=== PATIENT | female | born 2000 | race Caucasian/White ===

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

== ENCOUNTER → 2019-04-28 15:36 | Emergency (ER) | payer MEDICAID, SELFPAY ==
[2019-04-28 15:37] VITALS: BP 113/70; PULSE 68; RESP 16; TEMP 37; O2SAT 97; BMI 27.3
--- NOTE | 2019-04-28 16:59 | ED.RN ---
LEFT AND STATES SHE IS GOING TO GO TO URGENT CARE TO GET WORK NOTE.
== END ==
DX: R69 Illness, unspecified (principal)

== ENCOUNTER 2020-06-26 13:37 | Emergency (ER) | payer SELFPAY ==
[2019-04-28 15:37] VITALS: BMI 27.3
[2020-06-26 13:39] VITALS: BP 137/95; PULSE 136; RESP 17; TEMP 36.6; O2SAT 98; BMI 21.0
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
[2020-06-26 16:00] VITALS: RESP 19; O2SAT 98
[2020-06-26 16:33] LABS: Internal QC Validated? YES +Cl - CLEAR BKGD; Pregnancy, Urine Negative Negative
[2020-06-26 17:02] LABS: HIV - WCH Non-Reactive (Nonreactive)
[2020-06-26 17:07] VITALS: BP 132/86; PULSE 89; RESP 18; O2SAT 98
[2020-06-26 18:04] LABS: Chlamydia Trachomatis by PCR Negative (Negative); Neisserai gonorrhoeae by PCR Negative (Negative); Probe Check PASS; Sample Adequacy Control PASS; Specimen Processing Control PASS
== END 2020-06-26 17:08 | disposition home or self-care (01) ==
PROVIDERS: Emergency Provider Emergency Medicine
DX: B37.0 Candidal stomatitis (principal); F15.90 Other stimulant use, unspecified, uncomplicated; F11.90 Opioid use, unspecified, uncomplicated; F17.200 Nicotine dependence, unspecified, uncomplicated
CPT/HCPCS: 81025; 86703; 87491; 87591; 99283

== ENCOUNTER 2020-06-28 15:02 | Emergency (ER) | payer SELFPAY ==
[2020-06-28 15:04] VITALS: BP 138/93; PULSE 96; RESP 14; TEMP 36.8; O2SAT 98; BMI 23.6
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
== END 2020-06-28 16:34 | disposition home or self-care (01) ==
PROVIDERS: Emergency Provider Emergency Medicine
DX: F91.8 Other conduct disorders (principal); F17.200 Nicotine dependence, unspecified, uncomplicated
CPT/HCPCS: 99282

== ENCOUNTER 2020-08-22 14:11 | Emergency (ER) | payer SELFPAY ==
[2020-08-22] VITALS (7 sets, daily range): BP systolic 86–129; BP diastolic 54–86; PULSE 104–122; RESP 16; TEMP 36; O2SAT 96–98; BMI 22.6
--- NOTE | 2020-08-22 14:57 | EKG12_ITS ---
Test Reason : MEDICAL CLEARANCE Blood Pressure : / mmHG Vent. Rate : 097 BPM Atrial Rate : 097 BPM P-R Int : 136 ms QRS Dur : 074 ms QT Int : 396 ms P-R-T Axes : -11 068 -64 degrees QTc Int : 502 ms Normal sinus rhythm T wave abnormality, consider inferior ischemia T wave abnormality, consider anterolateral ischemia Prolonged QT Abnormal ECG Confirmed by ARELIS PIERCE, LARRY ([id number]), editor at large RUTH AYERS ([id number]) on 08/26/2020 12:41:23 PM Referred By: MAEGAN Confirmed By:LARRY INFANTE MD
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
--- NOTE | 2020-08-22 15:03 | CM.ED ---
Social Work Note: Referral Source: [facility] Referral Issue: Patient was seen by Crisis today and is coming to the ED. BALTA received phone call from Sandy in Crisis. She advised that there is a patient, Aspen Gillespie coming in by police. Sandy said that she has been working all day with the family and would like to complete the assessment. interline clerk updated. BALTA will be available for ongoing support and assistance as needed. Arti DOMINGUEZ
--- NOTE | 2020-08-22 15:23 | CM.ED ---
SOCIAL WORK Security requesting this worker speak with mother. Mother reports patient's father has been speaking with Crisis. Patient has not been [place] at this time. Spoke with Domenica with Crisis to update patient is here. Domenica to be in to assess patient. Staff updated. Kan Wilcox, TANNING SOLUTION MAKER, HADOOP ANALYST
--- NOTE | 2020-08-22 15:58 | CASEMGMT ---
Social Work Note: Referral Source: [facility] Crisis is currently meeting with patient to assess for her current level of care. Arti DOMINGUEZ
[2020-08-22] MEDS: LORazepam 1 MG Tablet 2 MG PO (16:01)
--- NOTE | 2020-08-22 16:10 | CM.ED ---
SOCIAL WORK Received call from Domenica with Crisis. Per Domenica, physician to [place] patient. Domenica reports patient requires placement and requests once medically cleared to fax chart. Staff updated and aware of plan. Kan Wilcox, CONTACT LENS BLOCKER, HAT AND CAP DRYING ROOM ATTENDANT
[2020-08-22] MEDS: Haloperidol 5 MG Tablet PO (16:15)
[2020-08-22 18:20] LABS: Absolute Lymphocyte Count 1.99 X10^3/uL (0.83-4.51); Absolute Neutrophil Count 5.5 X10^3/uL (2.0-7.7); Basophil# 0.03 X10^3/uL; Basophil% 0.4 % (0-1); Eosinophil# 0.13 X10^3/uL; Eosinophils% 1.5 % (0-5); Hematocrit 37.5 % (37-47); Hemoglobin 12.8 g/dL (12.0-15.0); Lymphocyte # 1.99 X10^3/ul (0.83-4.51); Lymphocyte % 23.5 % (19-41); Mean Corp Hgb Conc 34.1 g/dL (32-36); Mean Corpuscular Hgb 28.4 pg (27.0-32.0); Mean Corpuscular Volume 83.3 fL (81-99); Mean Platelet Vol. 10.9 fl (6.2-12.0); Monocyte# 0.84 X10^3/uL; Monocyte% 9.9 % (0-10); NRBC Flagged by Analyzer 0 % (0-5); Neutrophil # 5.47 X10^3/uL (2.7-7.7); Neutrophil % 64.5 % (47-70); Platelet Count 285 K/mm3 (150-450); RBC Distribution Width SD 38.6 fl (35.1-43.9); White Blood Count 8.5 K/mm3 (4.4-11.0)
[2020-08-22 19:13] LABS: Anion Gap 10 (5-15); BUN 19 mg/dL (7-18); BUN/Creat Ratio 31.6 RATIO (10-20); Calcium,Total 8.8 mg/dL (8.5-10.1); Chloride 104 mmol/L (98-107); EST Glomerular Filtration Rate 134 mL/min (>60); Est Glom Filt Rate - Afr Amer 162 mL/min (>60); Estimated Creatinine Clearance 112.86 ml/min; Glucose 77 mg/dL (74-106); Potassium 2.4 mmol/L (3.5-5.1); Sodium Level 140 mmol/L (136-145)
[2020-08-22 19:25] LABS: Internal QC Validated? YES +Cl - CLEAR BKGD; Pregnancy, Serum, hCG Quali. NEGATIVE Negative
--- NOTE | 2020-08-22 19:46 | CM.ED ---
SOCIAL WORK Call from Crisis, requesting Facesheet. Facesheet faxed. D. Brenden, STENOTYPE OPERATOR, LOGISTICS MANAGER
--- NOTE | 2020-08-22 19:48 | CM.ED ---
SOCIAL WORK Call from Crisis, requesting Facesheet. Facesheet faxed. D. Brenden, OUTCOMES SPECIALIST, TOY CONSULTANT
[2020-08-22] MEDS: Potassium Chloride 10mEq/100mL 10 MEQ/100 ML IV.SOLN. 100 MEQ IV BOLUS ×3 (19:49→21:49)
--- NOTE | 2020-08-22 19:59 | ED.RN ---
pt resting upon entering the room, once in room pt awakened briefly and was cooperative. restraints removed.
--- NOTE | 2020-08-22 20:39 | RAD_ITS ---
STUDY: X-RAY CHEST REASON FOR EXAM: Female, 19 years old. Sob TECHNIQUE: Single frontal view of the chest. COMPARISON: 04/19/2018. FINDINGS: Cardiac silhouette unremarkable. Pulmonary vascularity unremarkable. Aorta unremarkable. No focal airspace opacities. No pleural effusions. Calcified nodule at the left base. Upper abdomen unremarkable. Osseous structures intact. No pneumothorax. RAD/Chest 1 View (Portable) IMPRESSION: No acute cardiopulmonary process identified. Electronically Signed: Сергей Shah MD at 21:12 EDT Tel , Service support ,
[2020-08-22 22:51] LABS: AST(SGOT) 45 U/L (15-37); Alanine Aminotransfer ALT/SGPT 43 U/L (13-56); Albumin, Serum 3.9 g/dL (3.2-5.0); Alkaline Phosphatase 104 U/L (45-117); Bilirubin, Direct 0.28 mg/dL (0.00-0.30); Protein, Total 6.9 g/dL (6.4-8.2)
[2020-08-23] VITALS (8 sets, daily range): BP systolic 88–109; BP diastolic 62–71; PULSE 90–98; RESP 14–18; O2SAT 98–100
[2020-08-23] MEDS: Potassium Chloride 10mEq/100mL 10 MEQ/100 ML IV.SOLN. 100 MEQ IV BOLUS (00:08)
[2020-08-23 05:42] LABS: Amphetamine Urine VISTA POSITIVE (<1000 ng/mL); Barbiturate Urine VISTA NEGATIVE (< 200 ng/mL); Benzodiazepine Urine VISTA NEGATIVE (< 200 ng/mL); Cocaine Urine VISTA NEGATIVE (< 300 ng/mL); Ecstacy Urine VISTA POSITIVE (< 500 ng/mL); Methadone Urine VISTA NEGATIVE (< 300 ng/mL); PCP Urine VISTA NEGATIVE (< 25 ng/mL); THC Urine VISTA POSITIVE (< 50 ng/mL); Vista UDS pH Range 5
--- NOTE | 2020-08-23 06:46 | ED.RN ---
PT WOKE UP AND ASKED IF SHE COULD GO HOME D/T NOT BEING PINK SLIPPED. DR SUZI OTERO SLIPPED PT. PT UNDERSTANDS AND IS REASONABLE IN ROOM AT THIS TIME.
--- NOTE | 2020-08-23 06:50 | EKG12_ITS ---
Test Reason : REPEAT Blood Pressure : / mmHG Vent. Rate : 100 BPM Atrial Rate : 100 BPM P-R Int : 132 ms QRS Dur : 078 ms QT Int : 310 ms P-R-T Axes : 060 072 -61 degrees QTc Int : 399 ms Normal sinus rhythm Possible Left atrial enlargement Nonspecific T wave abnormality Abnormal ECG Confirmed by ARELIS PIERCE, LARRY ([id number]), school photograph editor RUTH AYERS ([id number]) on 08/26/2020 12:59:00 PM Referred By: Confirmed By:LARRY INFANTE MD
[2020-08-23 07:15] LABS: Potassium 3.2 mmol/L (3.5-5.1)
--- NOTE | 2020-08-23 09:04 | NURSING ---
FAXED EKG AND LABS TO [facility]
--- NOTE | 2020-08-23 11:49 | NURSING ---
CALLED [facility]IS[facility]. TALKED TO JING. ABOUT 1100 THE DOCTOR AT [facility] WAS LOOKING AT CHART
--- NOTE | 2020-08-23 12:20 | ED.RN ---
PT REQUESTS TO BE RE-EVALUATED TO BE ABLE TO GO HOME. TALKED TO DR. VALDEZ AND TASHA FROM SOCIAL WORK, [facility] IS TO COME IN TODAY AND REVAL PT.
--- NOTE | 2020-08-23 12:25 | CM.ED ---
SOCIAL WORK Updated by nursing, Dr. Burden requesting re-evaluation of patient. Call to Crisis, spoke with Arti. Per Arti, patient is pending today for [place]. Patient able to be re-assessed after 24 hours. Crisis reports able to re-assess this afternoon. Staff updated. Kan Wilcox, MANAGER EXPRESS, MOTEL FRONT DESK CLERK
--- NOTE | 2020-08-23 14:30 | CM.ED ---
SOCIAL WORK Spoke with Emilie from Crisis, informed patient is ready for re-assessment (has been in ER over 24 hours). Emilie reports coffee plantation worker will be in for re-assessment. Emilie states patient is currently pending at [facility] who reports no beds this weekend. Staff tonya. Kan Wilcox, SUPERVISOR CIGAR PROCESSING, CUSTOMER STRATEGY MANAGER
--- NOTE | 2020-08-23 15:29 | CM.ED ---
SOCIAL WORK Arti from Crisis here to re-assess patient. Kan Wilcox, TOBACCO EDUCATOR, CABLE STRANDER
[2020-08-23] MEDS: Potassium Chloride Oral Tablet 20 MEQ 40 MEQ PO (15:37)
--- NOTE | 2020-08-23 15:46 | ED.RN ---
[facility]ISIS IS IN ROOM RE-EVAULATING PT.
== END 2020-08-23 17:53 | disposition home or self-care (01) ==
PROVIDERS: Emergency Medicine; Emergency Provider Emergency Medicine
DX: F23 Brief psychotic disorder (principal); F15.90 Other stimulant use, unspecified, uncomplicated; F17.200 Nicotine dependence, unspecified, uncomplicated
CPT/HCPCS: 71045; 80048; 80076; 80307; 82077; 83735; 84132; 84703; 85025; 87426; 93005; 96365; 96366; 96372; 99284; J7030; A4216; J3486

== ENCOUNTER 2020-12-26 12:38 | Emergency (ER) | payer SELFPAY ==
[2020-12-26 12:38] VITALS: BP 118/88; PULSE 83; RESP 16; TEMP 36.1; O2SAT 100; BMI 26.4
--- NOTE | 2020-12-26 14:23 | ED.RN ---
MOTHER STATES PT IS BARELY BLEEDING, SHE WILL TAKE HER TO LIGHT RAIL TRAIN OPERATOR INSTEAD. INSTRUCTIONS GIVEN TO COME BACK FOR ANY INCREASE IN BLEEDING OR BECOMES SYMPTOMATIC FOR BLOOD LOSS OR PAIN.
== END 2020-12-26 15:00 | disposition left against medical advice (07) ==
LOC: ED 15:48
DX: N93.9 Abnormal uterine and vaginal bleeding, unspecified (principal)

== ENCOUNTER 2021-04-05 17:46 | Emergency (ER) | payer SELFPAY ==
[2021-04-05 17:47] VITALS: BP 135/122; PULSE 76; RESP 20; TEMP 36.1; O2SAT 98; BMI 33.5
--- NOTE | 2021-04-05 17:58 | ED.RN ---
PT. REPORTS LAST METH USE OF YESTERDAY.
--- NOTE | 2021-04-05 18:09 | EDS_ITS ---
HPI History of Present Illness Chief Complaint: Substance Abuse Detail of Chief Complaint: Illicit drug use Informant: patient, EMS and police/primer inserting machine adjuster Narrative Narrative: Patient presents to the emergency department with abnormal behavior. She was known to be walking outside and just a T-shirt so EMS was called to evaluate her. Patient was awake and alert and they were to sign off on her but then apparently she ran away from police into a field. They were going to apparently pink slip for but brought her into the ER for evaluation. Patient does have history of methamphetamine use but tells me she has new since yesterday. Patient denies any other drug use. She denies being suicidal or homicidal. [facility] Medical History Anxiety Depression Substance abuse Allergy/AdvReac Type Severity Reaction Status Date / Time bee venom protein (honey bee) Allergy Other Verified 04/05/21 17:50 Social History Smoking Status: Current every day smoker tobacco type: cigarettes ROS ROS ED Constitutional Constitutional ED: Reports systems reviewed and no addt'l complaints, except as documented; Denies body ache(s), change in weight or chills Eyes Eyes: Denies acute decrease in peripheral vision, change in vision, double vision or loss of vision ENT ENT ED: Reports none; Denies ear pain, lip swelling, loss taste/smell, neck pain, otalgia or sore throat Cardiovascular Cardiovascular: Reports none; Denies abdominal pain, chest pain with activity, leg edema, lightheadedness, palpitations, rapid heart rate or syncope Respiratory/Chest Respiratory/Chest: Reports none; Denies change in mental status, dry cough, dyspnea, hemoptysis, shortness of breath at rest or shortness of breath with exertion Gastrointestinal Gastrointestinal: Reports none; Denies abdominal pain, change in stool character, diarrhea, hematemesis, hematochezia, melena, rectal bleeding or vomiting Genitourinary Genitourinary ED: Reports none; Denies abdominal discomfort, anuria, dysuria, genital pain or polyuria Musculoskeletal Musculoskeletal: Reports none; Denies arthralgias, back pain, difficulty walking, extremity pain, muscle weakness or myalgias Integumentary Reports none; Denies abscess or rash Neurologic Neurologic: Reports none; Denies abnormal gait, confusion, focal weakness, frequent falls, headache(s), loss of vision, numbness, paresthesias, radicular pain, vertigo or weakness Psychiatric Psychiatric: Reports systems reviewed and no addt'l complaints, except as documented, none and other Details: Abnormal behavior, agitation ; Denies behavioral changes, confusion, difficulty concentrating, hallucinations, suicidal ideation, tactile hallucinations or visual hallucinations Endocrine Endocrinology: Denies none, cold intolerance, excessive sweating, fatigue or heat intolerance Hematologic/Lymphatic Hematologic/Lymphatic: Reports none; Denies anemia, easy bleeding or easy bruising Allergic/Immunologic Allergic/Immunologic ED: Denies as per HPI, none, lip swelling, mouth swelling, throat swelling, tongue swelling or hives EXAM Physical Exam Const Vital Signs: 04/05/21 17:47 Temperature 97.0 F L Temperature Source Temporal Pulse Rate 76 Respiratory Rate 20 H Blood Pressure 135/122 H Blood Pressure Mean 126 Pulse Ox 98 Oxygen Delivery Method Room Air Positive well nourished and well developed General Appearance ED: well developed and NAD HEENT Reports TM's clear and moist mucous membranes normocephalic and atraumatic; Negative for trauma or tenderness Tympanic Membrane ED: Yes TM's clear Eyes PERRL and EOMs intact bilaterally General Eye ED: Negative for pale conjunctiva or scleral icterus Neck no lymphadenopathy, supple and no JVD General: Negative for tenderness Chest Wall inspection of chest normal and palpation of chest normal Chest: Negative for tenderness Resp normal respiratory effort and clear to auscultation bilaterally Effort and Inspection: Negative for respiratory distress or pain with movement Auscultation: Negative for rhonchi, wheezes or diminished lung sounds Cardio regular rate, regular rhythm, S1 normal heart sound, S2 normal heart sound and no murmurs Peripheral Pulses: pulses 2+ throughout GI normal to inspection, nondistended, normoactive bowel sounds, soft to palpation, non-tender, non-distended and no masses Back/Spine no CVA tenderness and no thoracic nor lumbar tenderness Extremity normal to inspection General Extremety ED: Negative for edema General Extremity: Negative for edema Neuro oriented x3, CN's II-XII intact bilaterally, no sensory deficits noted and gait normal Sensorium / Orientation: awake, alert, oriented to person, oriented to place and oriented to time Motor Exam: strength 5/5 throughout and strength abnormal Psych mental status grossly normal Psych Narrative: Patient awake and alert. She is somewhat confused and told me that my name was Kennedy. Patient with psychomotor agitation and involuntary movements. She tends to rock back and forth. She follows commands and otherwise is appropriate. Skin no rashes or lesions noted and no wounds MDM MDM MDM Narrative Medical decision making narrative: Patient refusing all lab work and medication. At this point she is not pink slipped and I do not feel she is a danger to herself or others. Patient would like to leave the department. We offered to help call her mother or family to take her home. Discharge Plan Triage Chief Complaint: Substance Abuse ED Provider: Yogi Hernandez Dx/Rx/DC Orders Clinical Impression: Illicit drug use Instructions: ED Drug Abuse Primary Care Provider: Care Physician,No Primary Referrals: Lis Ospina MD [STAFF PHYSICIAN] - 3-5 Days Care Physician,No Primary [Primary Care Provider] - [facility] [STAFF PHYSICIAN] - As soon as possible Disposition Disposition: Home, Self Care
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
--- NOTE | 2021-04-05 18:48 | ED.RN ---
PT. REFUSED PHONE CALL FROM MOTHER AND ALSO REFUSED TO CALL MOTHER FOR A RIDE. STATED THEY WOULD WALK HOME.
== END 2021-04-05 18:44 | disposition home or self-care (01) ==
PROVIDERS: Emergency Provider Emergency Medicine
DX: F19.10 Other psychoactive substance abuse, uncomplicated (principal); F17.210 Nicotine dependence, cigarettes, uncomplicated
CPT/HCPCS: 99283

== ENCOUNTER 2022-02-13 13:08 | Emergency (ER) | payer MEDICAID, SELFPAY ==
[2022-02-13 13:09] VITALS: BP 130/84; PULSE 108; RESP 18; TEMP 36.6; O2SAT 96; BMI 31.1
--- NOTE | 2022-02-13 13:40 | EX.ED.DYSGE1 ---
HPI History of Present Illness Chief Complaint: Seizure Informant: patient Onset/Context/Timing Onset: Days Context: Gradual Onset Timing: Intermittent and Lasts (Few seconds) Quality: Shaking Location: Generalized Worsened by: Nothing Relieved by: Nothing Narrative Narrative: Patient presents with seizure-like activity that has been intermittent over the last couple days. Patient states she is shaking all over. Patient states it lasts only a few seconds. Patient states nothing makes it better and nothing makes it worse. Patient denies any loss of control of her bowels or bladder. Patient denies biting her tongue. Patient admits to some subjective fevers at home. Patient admits to some pain in her chest and trouble breathing. Patient admits to a headache, neck pain, and back pain. [facility] Medical History Anxiety Depression Substance abuse Home Medications NK 02/13/22 [History Last Taken Unknown] Allergy/AdvReac Type Severity Reaction Status Date / Time bee venom protein (honey bee) Allergy Other Verified 02/13/22 13:18 Surgical History no surgical history no surgical history Social History Smoking Status: Current every day smoker tobacco type: cigarettes ROS ROS ED Constitutional Constitutional ED: Reports fever(s) and subjective; Denies chills Eyes Eyes: Reports change in vision; Denies blurry vision or diplopia ENT ENT ED: Denies rhinorrhea or sore throat Cardiovascular Cardiovascular: Reports chest pain; Denies palpitations Respiratory/Chest Respiratory/Chest: Reports dyspnea; Denies cough Gastrointestinal Gastrointestinal: Reports nausea and vomiting Genitourinary Genitourinary ED: Denies dysuria or hematuria Musculoskeletal Musculoskeletal: Reports back pain and neck pain Integumentary Denies abscess or rash Neurologic Neurologic: Reports headache(s); Denies weakness Allergic/Immunologic Allergic/Immunologic ED: Denies mouth swelling or urticaria EXAM Physical Exam Const Vital Signs: 02/13/22 13:09 02/13/22 15:09 02/13/22 15:15 Temperature 97.9 F Temperature Source Oral Pulse Rate 108 H Respiratory Rate 18 16 Blood Pressure 130/84 H 106/70 Blood Pressure Mean 99 82 Pulse Ox 96 Oxygen Delivery Method Room Air Positive well nourished and well developed General Appearance ED: well developed HEENT Reports moist mucous membranes Neck supple and no JVD Resp normal respiratory effort and clear to auscultation bilaterally Cardio regular rate, regular rhythm and no murmurs GI normal to inspection, nondistended, normoactive bowel sounds and non-tender Palpation: soft Extremity normal to inspection General Extremety ED: Negative for edema or tenderness General Extremity: Negative for edema Neuro oriented x3, CN's II-XII intact bilaterally and no sensory deficits noted Neuro Narrative: Patient had brief intermittent shaking episodes on examination. Patient did not lose consciousness. Patient did not bite her tongue. Patient did not have any urinary or stool incontinence. Patient was able to talk during these episodes. Patient was able to maintain eye contact. There was no postictal state. Sensorium / Orientation: alert Motor Exam: strength 5/5 throughout Psych mental status grossly normal Skin no rashes or lesions noted MDM MDM MDM Narrative Medical decision making narrative: CBC was within normal limits. Comprehensive metabolic profile was within normal limits. Lactate was normal. Prolactin level was normal. Serum hCG was negative. Urine tox screen was negative. Urinalysis shows a leukocyte esterases of 25 with 5-10 white blood cells. There were no bacteria noted. CT scan of the brain was obtained. There is no acute intracranial abnormality. This was interpreted by the radiologist and reviewed by myself. Patient was advised of her findings. Patient was advised that this is not an epileptic seizure. I do not feel the patient needs antiepileptic medications at this time. Patient was instructed to follow-up with her primary care physician in 3 to 5 days. Patient understood and was agreeable with the plan. All questions were answered. Lab Data Attestation: I reviewed the patient's lab results. Labs: Laboratory Results - last 24 hr 02/13/22 02/13/22 02/13/22 13:50 13:50 13:54 WBC 9.0 RBC 4.84 Hgb 13.7 Hct 40.7 MCV 84.1 MCH 28.3 MCHC 33.7 RDW Std Deviation 38.7 RDW Coeff of Ralf 12.7 Plt Count 242 MPV 10.9 Immature Gran % (Auto) 0.200 Neut % (Auto) 74.1 H Lymph % (Auto) 16.9 L [place] % (Auto) 5.7 Eos % (Auto) 2.8 Baso % (Auto) 0.3 Absolute Neuts (auto) 6.7 Absolute Lymphs (auto) 1.52 Nucleated RBC % 0 Sodium Potassium Chloride Carbon Dioxide Anion Gap BUN Creatinine Estim Creat Clear Calc Est GFR (MDRD) Af Amer Est GFR (MDRD) Non-Af BUN/Creatinine Ratio Glucose Lactic Acid Calcium Total Bilirubin AST ALT Alkaline Phosphatase Total Protein Albumin Globulin Albumin/Globulin Ratio Prolactin Serum , Qual Urine Color Straw Urine Clarity Sl. Cloudy Urine pH 7.0 Ur Specific Gillespie 1.010 Urine Protein Negative Urine Glucose (UA) Normal Urine Ketones Negative Urine Occult Blood Negative Urine Nitrite Negative Urine Bilirubin Negative Urine Urobilinogen Normal Ur Leukocyte Esterase 25 H Urine RBC 0 SEEN Urine WBC 5-10 SEEN Ur Squamous Epith Cells 0 SEEN Urine Bacteria 0 SEEN Urine Mucus 0 SEEN Urine Opiates Screen NEGATIVE Urine Methadone Screen NEGATIVE Ur Barbiturates Screen NEGATIVE Ur Phencyclidine Scrn NEGATIVE Ur Amphetamines Screen NEGATIVE MDMA (Ecstasy) Screen NEGATIVE U Benzodiazepines Scrn NEGATIVE Urine Cocaine Screen NEGATIVE U Cannabinoids Screen NEGATIVE Ur Drug Screen Comment 02/13/22 02/13/22 02/13/22 13:54 13:54 13:54 WBC RBC Hgb Hct MCV MCH MCHC RDW Std Deviation RDW Coeff of Ralf Plt Count MPV Immature Gran % (Auto) Neut % (Auto) Lymph % (Auto) [place] % (Auto) Eos % (Auto) Baso % (Auto) Absolute Neuts (auto) Absolute Lymphs (auto) Nucleated RBC % Sodium 137 Potassium 3.9 Chloride 107 Carbon Dioxide 23.0 Anion Gap 7 BUN 15 Creatinine 0.66 Estim Creat Clear Calc 96.04 Est GFR (MDRD) Af Amer 144 Est GFR (MDRD) Non-Af 119 BUN/Creatinine Ratio 22.7 H Glucose 98 Lactic Acid 1.6 Calcium 8.9 Total Bilirubin 0.30 AST 11 L ALT 20 Alkaline Phosphatase 90 Total Protein 7.3 Albumin 3.9 Globulin 3.4 Albumin/Globulin Ratio 1.1 Prolactin 10.3 Serum , Qual NEGATIVE Urine Color Urine Clarity Urine pH Ur Specific Gillespie Urine Protein Urine Glucose (UA) Urine Ketones Urine Occult Blood Urine Nitrite Urine Bilirubin Urine Urobilinogen Ur Leukocyte Esterase Urine RBC Urine WBC Ur Squamous Epith Cells Urine Bacteria Urine Mucus Urine Opiates Screen Urine Methadone Screen Ur Barbiturates Screen Ur Phencyclidine Scrn Ur Amphetamines Screen MDMA (Ecstasy) Screen U Benzodiazepines Scrn Urine Cocaine Screen U Cannabinoids Screen Ur Drug Screen Comment Radiography Diagnostic Testing: Clinical Impression(s) from Imaging Studies Brain CT 02/13/22 13:44 IMPRESSION: Normal unenhanced CT scan of the brain. Electronically Signed: Jhony Brice MD at 14:16 EDT , Discharge Plan Triage Chief Complaint: Seizure ED Provider: Woody Murguia Dx/Rx/DC Orders Clinical Impression: Psychogenic nonepileptic seizure Instructions: ED Seizure New Onset Unknown ... Prescriptions: No Action NK Primary Care Provider: Care Physician,No Primary Referrals: Mona Morris [Non-Staff] - 3-5 Days Care Physician,No Primary [Primary Care Provider] - Disposition Disposition: Home, Self Care Discharge Date/Time: 02/13/22 15:25
--- NOTE | 2022-02-13 13:44 | CT_ITS ---
STUDY: CT BRAIN WITHOUT CONTRAST REASON FOR EXAM: Female, 21 years old. Seizure RADIATION DOSAGE (If Supplied By Facility): CTDIvol = ( 44.99 ) mGy, DLP = ( 745.49 ) mGycm TECHNIQUE: Transaxial CT imaging of the brain was performed without administration of intravenous contrast material. Individualized dose optimization techniques were used for this CT. COMPARISON: Comparison is made with prior study dated 12/27/2013. FINDINGS: Normal soft tissue structures. Normal calvarium. Normal size ventricles and extra-axial spaces for the patient''s age. Normal white matter tracts of the cerebral hemispheres. Normal basal ganglia and thalami. Normal brainstem. Normal cerebellum. There is no intracranial hemorrhage. There are no findings of an acute ischemic infarction. There is an 8.5 mm polyp or retention cyst in the anterior aspect of the right sphenoid sinus. CT/Brain/Head without Contrast IMPRESSION: Normal unenhanced CT scan of the brain. Electronically Signed: Jhoyn Brice MD at 14:16 EDT ,
[2022-02-13 13:59] LABS: Absolute Lymphocyte Count 1.52 X10^3/uL (0.83-4.51); Absolute Neutrophil Count 6.7 X10^3/uL (2.0-7.7); Basophil# 0.03 X10^3/uL; Basophil% 0.3 % (0-1); Eosinophil# 0.25 X10^3/uL; Eosinophils% 2.8 % (0-5); Hematocrit 40.7 % (37-47); Hemoglobin 13.7 g/dL (12.0-15.0); Lymphocyte # 1.52 X10^3/ul (0.83-4.51); Lymphocyte % 16.9 % (19-41); Mean Corp Hgb Conc 33.7 g/dL (32-36); Mean Corpuscular Hgb 28.3 pg (27.0-32.0); Mean Corpuscular Volume 84.1 fL (81-99); Mean Platelet Vol. 10.9 fl (6.2-12.0); Monocyte# 0.51 X10^3/uL; Monocyte% 5.7 % (0-10); NRBC Flagged by Analyzer 0 % (0-5); Neutrophil # 6.67 X10^3/uL (2.7-7.7); Neutrophil % 74.1 % (47-70); Platelet Count 242 K/mm3 (150-450); RBC Distribution Width CV 12.7 % (11.6-14.6); RBC Distribution Width SD 38.7 fl (35.1-43.9); Red Blood Count 4.84 M/mm3 (4.2-5.4)
[2022-02-13 13:59] LABS: Bacteria 0 SEEN /hpf (None Seen); Mucous, Urine 0 SEEN /hpf (<or=2+); Red Blood Cells-Urine 0 SEEN /hpf (0-5); Squamous Epithelial Cells - UA 0 SEEN /hpf (5-10)
[2022-02-13 14:04] LABS: Color, Urine Straw (Yellow); Glucose, Dipstick Normal (Normal); Ketone-Dipstick Negative (Negative); Leukocyte Esterase-Dipstick 25 /ul (Negative); Nitrite-Dipstick Negative (Negative); Occult Blood-Urine Negative /ul (Negative); Protein-Dipstick Negative (Negative); Urine Bilirubin Dipstick Negative (Negative); Urine Clarity Sl. Cloudy (Clear); Urine Urobilinogen Normal (Normal)
[2022-02-13 14:09] LABS: Internal QC Validated? YES +Cl - CLEAR BKGD; Pregnancy, Serum, hCG Quali. NEGATIVE Negative
[2022-02-13 14:14] LABS: White Blood Cells 5-10 SEEN /hpf (0-5)
[2022-02-13 14:18] LABS: ALB/GLOB Ratio 1.1 RATIO (0.9-2.4); AST(SGOT) 11 U/L (15-37); Alanine Aminotransfer ALT/SGPT 20 U/L (13-56); Albumin, Serum 3.9 g/dL (3.2-5.0); Alkaline Phosphatase 90 U/L (45-117); Anion Gap 7 (5-15); BUN 15 mg/dL (7-18); BUN/Creat Ratio 22.7 RATIO (10-20); Calcium,Total 8.9 mg/dL (8.5-10.1); Chloride 107 mmol/L (98-107); Creatinine, Serum 0.66 mg/dL (0.55-1.02); EST Glomerular Filtration Rate 119 mL/min (>60); Est Glom Filt Rate - Afr Amer 144 mL/min (>60); Estimated Creatinine Clearance 96.04 ml/min; Globulin 3.4 g/dL (2.2-4.2); Glucose 98 mg/dL (74-106); Potassium 3.9 mmol/L (3.5-5.1); Prolactin 10.3 ng/mL; Protein, Total 7.3 g/dL (6.4-8.2); Sodium Level 137 mmol/L (136-145)
[2022-02-13 14:19] LABS: Amphetamine Urine VISTA NEGATIVE (<1000 ng/mL); Barbiturate Urine VISTA NEGATIVE (< 200 ng/mL); Benzodiazepine Urine VISTA NEGATIVE (< 200 ng/mL); Cocaine Urine VISTA NEGATIVE (< 300 ng/mL); Ecstacy Urine VISTA NEGATIVE (< 500 ng/mL); Methadone Urine VISTA NEGATIVE (< 300 ng/mL); PCP Urine VISTA NEGATIVE (< 25 ng/mL); THC Urine VISTA NEGATIVE (< 50 ng/mL); Vista UDS pH Range 6
[2022-02-13 14:25] LABS: Lactic Acid 1.6 mmol/L (0.4-1.9)
[2022-02-13 15:09] VITALS: BP 106/70
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
[2022-02-13 15:15] VITALS: RESP 16
== END 2022-02-13 15:25 | disposition home or self-care (01) ==
PROVIDERS: Emergency Provider Emergency Medicine; Visit Provider Emergency Medicine
DX: F44.5 Conversion disorder with seizures or convulsions (principal); F17.210 Nicotine dependence, cigarettes, uncomplicated; R51.9 Headache, unspecified; R06.00 Dyspnea, unspecified; M54.9 Dorsalgia, unspecified; M54.2 Cervicalgia
CPT/HCPCS: 70450; 80053; 80307; 81001; 83605; 84146; 84703; 85025; 99285; A4216

== ENCOUNTER 2022-03-19 11:04 | Emergency (ER) | payer MEDICAID, SELFPAY ==
[2022-03-19 11:05] VITALS: BP 120/81; PULSE 85; RESP 14; TEMP 36.8; O2SAT 98; BMI 31.6
--- NOTE | 2022-03-19 11:53 | EDS_ITS ---
HPI History of Present Illness Chief Complaint: Seizure Detail of Chief Complaint: Reported seizure Informant: patient, parent and PCP (Spoke with nurse practitioner who saw patient at [facility]. Please see HPI) Onset/Context/Timing Onset: Days Context: Sudden Onset Timing: Intermittent Quality: Generalized motor activity Location: Last incident occurred in mother's vehicle. Was seen in ER at that time. Current Severity: Gone Maximum Severity: Moderate Worsened by: Per patient does not know Relieved by: Nothing Associated Symptoms Associated Symptoms: None Narrative Narrative: Patient is a 21-year-old female who has history of fentanyl and methamphetamine addiction. She has been clean for proxy 1 year. She is present on probation. She states she was sent from the [facility] for seizure work-up. Spoke with the practitioner at the [facility]. I was informed that she offered psychiatric follow-up. Patient did not like her suggestion. She has been seen by neurology. It is the opinion of others as well as physicians who has seen her that these are nonepileptic motor activity. Patient is defiant towards her mother. Mother explained what happened. Mother informing that she had no loss of conscious or loss of motor tone when this occurred. There was no incontinence. There is no biting of the tongue. There was no discoloration. Prior similar symptoms: Yes Recent Illness/Hospitalization: Yes [facility] Medical History Anxiety Depression Substance abuse Home Medications levetiracetam 500 mg tablet 500 mg PO BID 03/19/22 [History Last Taken Unknown] Allergy/AdvReac Type Severity Reaction Status Date / Time bee venom protein (honey bee) Allergy Other Verified 03/19/22 11:08 Social History (Updated 03/19/22 @ 11:[address] Catarino Mckenzie MD) household members: family Smoking Status: Current every day smoker tobacco type: cigarettes substance use type: former substance user ROS ROS ED Constitutional Constitutional ED: Denies chills, fever(s), subjective, sweats or weight loss Eyes Eyes: Denies blurry vision, change in vision or diplopia ENT ENT ED: Denies ear pain, rhinorrhea or sore throat Cardiovascular Cardiovascular: Denies chest pain, palpitations or racing heartbeat Respiratory/Chest Respiratory/Chest: Denies cough, dyspnea or dyspnea on exertion Gastrointestinal Gastrointestinal: Denies abdominal pain, diarrhea, nausea or vomiting Genitourinary Genitourinary ED: Denies dysuria, hematuria or urinary frequency Musculoskeletal Musculoskeletal: Denies arthralgias, back pain, myalgias or neck pain Integumentary Denies Abrasions or rash Neurologic Neurologic: Reports other Details: Reported seizure. ; Denies headache(s), paresthesias or weakness Endocrine Endocrinology: Denies cold intolerance or heat intolerance Hematologic/Lymphatic Hematologic/Lymphatic: Reports systems reviewed and no addt'l complaints, except as documented EXAM Physical Exam Const Vital Signs: 03/19/22 11:05 Temperature 98.3 F Temperature Source Temporal Pulse Rate 85 Respiratory Rate 14 Blood Pressure 120/81 H Blood Pressure Mean 94 Pulse Ox 98 Oxygen Delivery Method Room Air Positive well nourished, well developed and obese General Appearance ED: well developed and NAD; Negative for cyanotic or diaphoretic Nutritional Appearance: obese HEENT Reports moist mucous membranes HEENT Narrative: Head is atraumatic normocephalic. Ears normal. Nares patent. Uvula midline. No deviation with protrusion. No erythema or exudate the posterior pharynx. Eyes PERRL and EOMs intact bilaterally General Eye ED: Negative for pale conjunctiva or scleral icterus Neck no lymphadenopathy, supple and no JVD Chest Wall inspection of chest normal and palpation of chest normal Resp normal respiratory effort and clear to auscultation bilaterally Cardio regular rate, regular rhythm, S1 normal heart sound, S2 normal heart sound and no murmurs GI normal to inspection, nondistended, normoactive bowel sounds, non-tender, non- distended and no masses; Negative for hepatosplenomegaly Back/Spine no CVA tenderness Extremity normal to inspection Neuro oriented x3, CN's II-XII intact bilaterally and no sensory deficits noted Sensorium / Orientation: alert Motor Exam: strength 5/5 throughout Psych Psych Narrative: Agitated, defiant towards mother, angry and confabulating. Affect is flat Skin no rashes or lesions noted, no wounds and skin turgor normal MDM MDM MDM Narrative Medical decision making narrative: Patient with nonepileptic seizure disorder. After speaking with the nurse practitioner at the [facility] and review of prior records including my own is my opinion the patient does not have a seizure disorder. Agree with the practitioner at the [facility] that she needs to be seen by psychiatry. She offered the therapist name and number. Apparently she without to make the appointment. Patient does not believe she has a psychological probl em. She is insistent that she has a seizure disorder. Discharge Plan Triage Chief Complaint: Seizure ED Provider: Catarino Mckenzie Dx/Rx/DC Orders Clinical Impression: Convulsion, non-epileptic, Conversion reaction Instructions: ED Conversion Reaction Prescriptions: No Action levetiracetam 500 mg tablet 500 mg PO BID Label Comments: TAKE 1 TABLET BY MOUTH TWICE A DAY Primary Care Provider: Care Physician,No Primary Referrals: Mona Morris [Non-Staff] - As soon as possible Care Physician,No Primary [Primary Care Provider] - Activity Restrictions/Additional Instructions: Recommend contacting the therapist at [facility] for outpatient visits and evaluation/treatment. Disposition Disposition: Home, Self Care
[2022-03-19 12:00] VITALS: RESP 16
== END 2022-03-19 12:13 | disposition home or self-care (01) ==
LOC: ED 12:05
PROVIDERS: Emergency Provider Emergency Medicine; Visit Provider Emergency Medicine
DX: R56.9 Unspecified convulsions (principal); F44.9 Dissociative and conversion disorder, unspecified; F17.210 Nicotine dependence, cigarettes, uncomplicated
CPT/HCPCS: 99282

== ENCOUNTER → 2022-06-16 | Outpatient (CLI) | payer MEDICAID, SELFPAY ==
--- NOTE | 2022-06-16 10:54 | TELEMED_ITS ---
[facility] has confirmed receipt of a request for visit. This document confirms receipt of the order initiating the consult. To find the results of the consultation, please view the patient's reports for the scanned Telemed Consult.
== END | disposition home or self-care (01) ==
LOC: PSN 08:25
PROVIDERS: Referring Provider Nurse Practitioner Family; Visit Provider Nurse Practitioner Family
DX: R56.9 Unspecified convulsions (principal)
CPT/HCPCS: 95819